=== PATIENT | female | born 1975 ===

== ENCOUNTER 2017-10-03 16:39 | Emergency (ER) | payer OTHER ==
[~2017-10-03] VITALS: Ht 152.4 cm; Wt 45.4 kg
--- NOTE | 2017-10-03 17:27 | ED GI/GU/ABDOMINAL COMPLAINT ---
History of Present Illness General Chief Complaint: Abdominal Pain/Flank Pain Stated Complaint: ABD PAIN Source: patient Exam Limitations: no limitations Vital Signs & Intake/Output Vital Signs & Intake/Output Vital Signs Date Time Temp Pulse Resp B/P B/P Pulse O2 O2 Flow FiO2 Mean Ox Delivery Rate 10/03 1850 84 18 133/64 100 Room Air 10/03 1848 Room Air 10/03 1647 96.6 66 16 138/69 99 Room Air Allergies Coded Allergies: ondansetron (From ZOFRAN ( HYDROCHLORIDE)) (Intermediate, ANXIETY 10/03/17) Triage Note: PT TO ER C/C N/V X 1 DAY, ABD PAIN 8/10, BURNING. + CHILLS. DENIES URINARY S/S. Triage Nurses Notes Reviewed? yes ? N Is pt currently ? No HPI: 42-year-old female former smoker, quit 7 years back with past medical history of anxiety, depression and use of marijuana came to ED with chief complaint of abdominal pain, nausea and vomiting since this morning. According to patient she was in her usual state of health since morning when she suddenly noticed having abdominal pain, continuous, 7/10, nonradiating, diffuse and no aggravating or relieving factor. Patient reported that she developed nausea and vomiting since this morning. She reported having vomiting multiple times since this morning, vomitus urination color without any blood and not smelling. She reported having 3-4 loose bowel movements. Patient reported that she ate steak, but didn't take last night. Patient reported that she is using marijuana for a long time for anxiety and nausea. Last time she used marijuana last night. She denied chest pain, palpitation, lightheadedness, headache, fever, chills, trauma, rash, tick bite, traveling, burning micturition, frequency of urination and dysuria. Patient was admitted with similar complaints last time in April 2017 when [facility] where she was given IV fluids and anti-emetics medications. Patient is thinking that her symptoms are due to anxiety. (Travis GRANT,Marvin) Reconcile Medications Levonorgestrel (Mirena) 20 MCG/24 HOUR (5 YEARS) IUD CONTROL (Reported) Metoclopramide HCl (Metoclopramide HCl Odt) 10 MG TAB.RAPDIS 1 TAB PO TID VOMITING (Emilie GRANT,Thomas Ward) Past History Travel History Traveled to [place] past 21 day No Medical History Gastrointestinal: GASTRIC ULCER Psychosocial History What is your primary language Kinyarwanda Tobacco Use: Never used (Marvin Robles MD) Medical History Any Pertinent Medical History? see below for history Surgical History Surgical History: non-contributory Family History Hx Contributory? No (Thomas Phan MD) Review of Systems Review of Systems Constitutional: Denies: chills, fever, weakness. EENTM: Reports: no symptoms. Respiratory: Denies: cough, short of breath, sputum production, stridor. Cardiovascular: Denies: chest pain, palpitations, syncope. GI: Reports: abdominal pain, diarrhea, nausea, vomiting. Denies: constipation. Genitourinary: Reports: no symptoms. Neurological/Psychological: Reports: no symptoms. (Marvin Robles MD) Review of Systems Hematologic/Endocrine: Reports: no symptoms. Immunologic/Allergic: Reports: no symptoms. (Thomas Phan MD) Physical Exam Physical Exam General Appearance: well developed/nourished, no apparent distress, alert, awake Head: atraumatic, normal appearance Eyes: Bilateral: normal appearance, PERRL, EOMI. Ears, Nose, Throat, Mouth: hearing grossly normal Neck: normal inspection, supple Respiratory: normal breath sounds Cardiovascular: regular rate/rhythm Gastrointestinal: Decreased bowel movements. Extremities: normal range of motion Neurologic/Psych: no motor/sensory deficits, awake, alert, oriented x 3 (Marvin Robles MD) Core Measures ACS in differential dx? No Sepsis Present: No Sepsis Focused Exam Completed? No (Thomas Phan MD) Progress Differential Diagnosis: gastritis, hepatitis, pancreatitis, gastroenteritis, cyclically induced vomiting syndrom, Marijuana induced vomiting. Plan of Care: Orders Procedure Date/time Status LIPASE 10/03 181 Active HUMAN BETA HCG SCREEN 10/04 1815 Active URINE DRUGS OF ABUSE 10/03 170 Active CBC WITHOUT DIFFERENTIAL 10/03 170 Active BASIC ELECTROLYTES PLUS BUN&CR 10/03 170 Active Current Medications Sig/Christin Start time Last Medication Dose Stop Time Status Admin Diphenhydramine HCl 25 MG ONCE ONE 10/03 1845 UNVr 10/03 (Benadryl) 10/03 1846 184 Ondansetron HCl 4 MG ONCE ONE 10/03 171 CAN (Zofran) 10/03 171 Laboratory Tests 10/03/17 1816: Sodium Pending, Potassium Pending, Chloride Pending, Carbon Dioxide Pending, Anion Gap Pending, BUN Pending, Creatinine Pending, BUN/Creatinine Ratio Pending , Lipase Pending, Total Beta HCG Pending, CBC w Diff MAN DIFF ORDERED, RBC 4.28, MCV 88.4, MCH 29.8, MCHC 33.8, RDW 13.5, MPV 8.1, Gran % 96.2 H, Lymphocytes % 1.8 L, Monocytes % 2.0, Eosinophils % 0, Basophils % 0, Absolute Granulocytes 18.5 H, Segmented Neutrophils Pending, Absolute Lymphocytes 0.4 L, Absolute Monocytes 0.4, Absolute Eosinophils 0, Absolute Basophils 0 10/03/17 172: Lipase Cancelled 10/03/17 171: Total Beta HCG Cancelled Initial ED EKG: none Comments: 42-year-old female former smoker, quit 7 years back with past medical history of anxiety, depression and use of marijuana came to ED with chief complaint of abdominal pain, nausea and vomiting since this morning. Considering patient's use of marijuana that can induce vomiting and abdominal paint. We will treat the patien with IV fluids and antiemetic medications. We will check CBC and BP with urine tox. We will discharge the patient on metoclopramide and Zofran by mouth. Was the patient see gastroenterology in 2-3 days. We will advise the patient to avoid marijuana use. (Travis GRANT,Marvin) Departure Departure Disposition: HOME OR SELF CARE Condition: Stable Clinical Impression Primary Impression: Cyclical vomiting syndrome Referrals: Gerardo Pereira MD (PCP/Family) Vinnie Hadley MD Additional Instructions: Please follow your primary care physician in one week Please follow up with gastroenterology in 2-3 days. If your symptoms worse than come back to ED. Pressure medications regularly and avoid marijuana use. Departure Forms: Customer Survey General Discharge Information Prescriptions: Current Visit Scripts Metoclopramide HCl (Metoclopramide HCl Odt) 1 TAB PO TID #20 TAB (Travis GRANT,Marvin) Resident Co-Sign Statement Statement: ED Attending supervision documentation- [X] I saw and evaluated the patient. I have also reviewed all the pertinent lab results and diagnostic results. I agree with the findings and the plan of care as documented in the Resident's documentation. [X] I have reviewed the ED Record and agree with the Resident's documentation. [] Additions or exceptions (if any) to the Resident's note and plan are summarized below: [] (Emilie GRANT,Thomas Ward)
[2017-10-03] MEDS ORDERED: MIRENA1 EACH (17:47)
[2017-10-03 18:25] LABS: ABSOLUTE BASOPHIL COUNT 0 /CUMM (0.0-0.2); ABSOLUTE EOSINOPHIL COUNT 0 /CUMM (0.0-0.7); ABSOLUTE GRANULOCYTE CT 18.5 /CUMM (1.4-6.5); ABSOLUTE LYMPH COUNT 0.4 /CUMM (1.2-3.4); ABSOLUTE MONOCYTE COUNT 0.4 /CUMM (0.10-0.60); BASOPHIL % 0 % (0.0-2.0); EOSINOPHIL % 0 % (0-5); HEMATOCRIT 37.9 % (37-47); MEAN CORPUSCULAR HGB 29.8 PG (27.0-31.0); MEAN CORPUSCULAR HGB CONC 33.8 G/DL (33.0-37.0); MEAN CORPUSCULAR VOLUME 88.4 FL (81.0-99.0); MEAN PLATELET VOLUME 8.1 FL (7.4-10.4); PLATELET COUNT 386 /CUMM (130-400); RBC DISTRIBUTION WIDTH 13.5 % (11.5-14.5); RED BLOOD CELL CT 4.28 /CUMM (4.20-5.40); WHITE BLOOD CELL COUNT 19.2 /CUMM (4.8-10.8)
[2017-10-03 18:27] LABS: GRANULOCYTE % 96.2 % (42.2-75.2)
[2017-10-03] MEDS ORDERED: METOCLOPRAMIDE10 M1 PO (18:49)
[2017-10-03 18:50] VITALS: BP 133/64
[2017-10-04] MEDS ORDERED: PHENERGAN25 M2 PR (01:57)
[2017-10-04] MEDS ORDERED: TRANSDERM-SCOP1 EAC1 TOP ×2 (01:57→03:59)
[2017-10-04] MEDS ORDERED: PROMETHAZINE HC25 M3 PO (01:57)
== END 2017-10-03 19:09 ==
LOC: ERH 16:39
PROVIDERS: Student in an Organized Health Care Education/Training Program
DX: G43.A0 Cyclical vomiting, in migraine, not intractable (principal)
CPT/HCPCS: 80307; 82436; 96374; 96375; J1200; J2405; J2765

== ENCOUNTER 2017-10-04 14:56 | Observation (INO) | payer OTHER ==
[~2017-10-04] VITALS: Ht 152.4 cm; Wt 45.4 kg
[~2017-10-04 14:56] MED LIST: METOCLOPRAMIDE10 M1 PO; MIRENA1 EACH; PHENERGAN25 M2 PR; PROMETHAZINE HC25 M3 PO; TRANSDERM-SCOP1 EAC1 TOP
--- NOTE | 2017-10-04 16:03 | ED GI/GU/ABDOMINAL COMPLAINT ---
See Addendum History of Present Illness General Chief Complaint: Nausea, Vomiting, Diarrhea Stated Complaint: VOMITING THIRD VISIT FOR SAME Source: patient Exam Limitations: no limitations Vital Signs & Intake/Output Vital Signs & Intake/Output Vital Signs Date Time Temp Pulse Resp B/P B/P Pulse O2 O2 Flow FiO2 Mean Ox Delivery Rate 10/04 1758 98.7 78 16 146/81 99 Room Air 10/04 1459 96.9 82 16 132/81 99 Room Air Allergies Coded Allergies: ondansetron (From ZOFRAN ( HYDROCHLORIDE)) (Intermediate, ANXIETY 10/03/17) metoclopramide (From REGLAN) ("ITCHY" PER PT 10/04/17) Reconcile Medications Levonorgestrel (Mirena) 20 MCG/24 HOUR (5 YEARS) IUD CONTROL (Reported) Metoclopramide HCl (Metoclopramide HCl Odt) 10 MG TAB.RAPDIS 1 TAB PO TID VOMITING Promethazine HCl (Phenergan) 25 MG SUPP.RECT 1 SUPP VT TID PRN NAUSEA Promethazine HCl 25 MG TABLET 1 TAB PO Q6P PRN NAUSEA Scopolamine (Transderm-Scop) 1 MG/3 DAY PATCH.TD.3 1 PATCH TOP Q3DAYS PRN NAUSEA Triage Note: 42 Y/O FEMALE IN ED TWICE AND TAKING PRESCRIBED MEDICATIONS - LAST DOSE NOON TODAY. STATES SHE CONTINUES TO HAVE DIFFUSE ABDOMINAL PAIN AND DRY HEAVES. DENIES URINARY SYMPTOMS. DENIES FEVERS. Triage Nurses Notes Reviewed? yes ? N Is pt currently ? No Onset: Abrupt Duration: constant Timing: recent history Location: generalized abdomen HPI: Patient is a 42-year-old female with a past medical history of cyclical vomiting syndrome, PUD in which old records indicate that patient was evaluated twice in the past 24 hours for her nausea vomiting abdominal pain in which patient states that Wednesday night she ate cheese steak and then Wednesday morning patient had acute onset of multiple labs showed of nausea and vomiting she was evaluated here at [place] emergency room work was obtained patient was sent home after improvement of her symptoms patient re-presented last night at 3 AM blood work was unobtainable patient was safely discharged however she reports with persistent nausea vomiting No change in bowel habits, denies any fever chills back pain dysuria hematuria Emesis is classified as nonbloody nonbilious (Helio Drake) Past History Travel History Traveled to [place] past 21 day No Medical History Any Pertinent Medical History? see below for history Neurological: NONE EENT: NONE Cardiovascular: NONE Respiratory: NONE Gastrointestinal: GASTRIC ULCER Hepatic: NONE Renal: NONE Musculoskeletal: NONE Psychiatric: NONE Endocrine: NONE Blood Disorders: NONE Cancer(s): NONE LAB ANALYST/Reproductive: NONE Surgical History Surgical History: non-contributory Psychosocial History What is your primary language [place]de[place] Creole Tobacco Use: Never used Family History Hx Contributory? No (Helio Drake) Review of Systems Review of Systems Constitutional: Reports: no symptoms. EENTM: Reports: no symptoms. Respiratory: Reports: no symptoms. Cardiovascular: Reports: no symptoms. GI: Reports: see HPI, abdominal pain, vomiting. Genitourinary: Reports: no symptoms. Musculoskeletal: Reports: no symptoms. Skin: Reports: no symptoms. Neurological/Psychological: Reports: no symptoms. Hematologic/Endocrine: Reports: no symptoms. Immunologic/Allergic: Reports: no symptoms. All Other Systems: Reviewed and Negative (Helio Drake) Physical Exam Physical Exam General Appearance: no apparent distress, alert, comfortable Head: atraumatic Eyes: Bilateral: normal appearance. Neck: normal inspection Respiratory: no respiratory distress Cardiovascular: regular rate/rhythm Gastrointestinal: normal bowel sounds, soft, tenderness Back: normal inspection Neurologic/Psych: no motor/sensory deficits, awake, alert Skin: intact, normal color, warm/dry Core Measures ACS in differential dx? No Sepsis Present: No Sepsis Focused Exam Completed? No (Helio Drake) Progress Differential Diagnosis: AAA, AMI, appendicitis, biliary colic, bowel obstruction , colon cancer, cholecystitis, diverticulitis, ectopic , endometritis, esophageal varices, gastritis, hepatitis, hernia, hemorrhoids, ischemic bowel, inflamm bowel dis, intrauterine , kidney stone, Monica-Asmita tear, ovarian cyst, ovarian torsion, pancreatitis, PID/cervicitis, peptic ulcer, PUD/ GERD, perforated viscous, SBO, threatened AB, UTI/pyelo Plan of Care: Orders Procedure Date/time Status LACTIC ACID 10/04 1908 Active URINE DRUG SCREEN FOR ER ONLY 10/04 1735 Active URINALYSIS 10/[address] ABD & PELVIS W IV CONTRAST 10/04 1611 Active LACTIC ACID 10/04 1608 Complete COMPREHENSIVE METABOLIC PANEL 10/04 1608 Complete CBC WITHOUT DIFFERENTIAL 10/04 1608 Active Laboratory Tests 10/04/17 1650: Anion Gap 15, Estimated GFR > 60, BUN/Creatinine Ratio 28.0 H, Glucose 104 H, Lactic Acid 1.3, Calcium 9.6, Total Bilirubin 0.6, AST 32, ALT 35, Alkaline Phosphatase 45, Total Protein 7.6, Albumin 4.8, Globulin 2.8, Albumin/Globulin Ratio 1.7, CBC w Diff MAN DIFF ORDERED, RBC 4.28, MCV 89.0, MCH 29.6, MCHC 33.3, RDW 13.6, MPV 8.5, Gran % 91.0 H, Lymphocytes % 3.0 L, Monocytes % 6.0, Eosinophils % 0, Basophils % 0, Absolute Granulocytes 17.5 H, Segmented Neutrophils Pending, Absolute Lymphocytes 0.6 L, Absolute Monocytes 1.2 H, Absolute Eosinophils 0, Absolute Basophils 0 Patient upon initial presentation is resting, bedside no apparent distress Afebrile normotensive Patient had no resolution of pain or nausea patient was given Toradol and Tigan Discussed handoff to Antonio Early blood work and CT scan currently pending Initial ED EKG: none Hand-Off Endorsed To: Antonio Huffman Endorsed Time: 1800 Pending: CT, labs (Helio Drake) Departure Departure Disposition: STILL A PATIENT Condition: Stable Clinical Impression Primary Impression: Abdominal pain Referrals: Gerardo Pereira MD (PCP/Family) Departure Forms: Customer Survey General Discharge Information (Helio Drake) PA/VEHICLE RETURN ASSOCIATE Co-Sign Statement Statement: ED Attending supervision documentation- [] I saw and evaluated the patient. I have also reviewed all the pertinent lab results and diagnostic results. I agree with the findings and the plan of care as documented in the PA's/VEHICLE RETURN ASSOCIATE's documentation. [X] I have reviewed the ED Record and agree with the PA's/VEHICLE RETURN ASSOCIATE's documentation. [] Additions or exceptions (if any) to the PAs/VEHICLE RETURN ASSOCIATE's note and plan are summarized below: [] (Moreno Isidro DO)
[2017-10-04 17:06] LABS: ABSOLUTE BASOPHIL COUNT 0 /CUMM (0.0-0.2); ABSOLUTE EOSINOPHIL COUNT 0 /CUMM (0.0-0.7); ABSOLUTE GRANULOCYTE CT 17.5 /CUMM (1.4-6.5); ABSOLUTE LYMPH COUNT 0.6 /CUMM (1.2-3.4); ABSOLUTE MONOCYTE COUNT 1.2 /CUMM (0.10-0.60); BASOPHIL % 0 % (0.0-2.0); EOSINOPHIL % 0 % (0-5); HEMATOCRIT 38.1 % (37-47); MEAN CORPUSCULAR HGB 29.6 PG (27.0-31.0); MEAN CORPUSCULAR HGB CONC 33.3 G/DL (33.0-37.0); MEAN PLATELET VOLUME 8.5 FL (7.4-10.4); PLATELET COUNT 353 /CUMM (130-400); RBC DISTRIBUTION WIDTH 13.6 % (11.5-14.5); RED BLOOD CELL CT 4.28 /CUMM (4.20-5.40); WHITE BLOOD CELL COUNT 19.2 /CUMM (4.8-10.8)
--- NOTE | 2017-10-04 21:30 | CT SCAN REPORT ---
EXAMINATION: CT ABDOMEN AND PELVIS WITHOUT CONTRAST CLINICAL INFORMATION: Generalized abdominal pain. COMPARISON: None TECHNIQUE: Multidetector volumetric imaging was performed from the superior aspect of the liver through the pubic symphysis. Sagittal and coronal reformatted images were obtained on the technologist's workstation. DLP: 258.78 mGy-cm FINDINGS: LUNG BASES: The visualized lung bases are unremarkable. LIVER, GALLBLADDER, AND BILIARY TREE: Periportal edema is seen with trace pericholecystic fluid. The liver is normal in size and contour. No focal liver lesions identified. The gallbladder is not overly distended. PANCREAS: Unremarkable. SPLEEN: Unremarkable. ADRENAL GLANDS: Unremarkable. KIDNEYS AND URETERS: Slightly hyperdense material within the urinary collecting systems. No evidence of hydronephrosis or perinephric stranding bilaterally. No radiopaque urinary calculi. BLADDER: The bladder is filled with hyperdense material without focal wall abnormality. GASTROINTESTINAL TRACT: The GI tract is very poorly evaluated due to lack of intra-abdominal fat planes, lack of luminal contrast and lack of IV contrast. The appendix is not seen. ABDOMINAL WALL: No significant abdominal wall hernia. There is trace abdominal ascites which tracks along the paracolic gutters with trace pelvic ascites as well. LYMPH NODES: Very difficult to evaluate for lymphadenopathy due to the above-mentioned limitations. No definite bulky lymphadenopathy is identified. VASCULAR: No abdominal aortic aneurysm. PELVIC VISCERA: IUD appears well placed. OSSEOUS STRUCTURES: No acute or suspicious osseous abnormality. IMPRESSION: 1. Limited evaluation without oral or IV contrast. Lack of intra-abdominal fat planes also limits evaluation. 2. There is periportal edema present within the liver along with trace abdominal ascites and trace pericholecystic fluid. These findings are nonspecific. Clinical correlation requested. 3. The gallbladder does not appear distended or inflamed. Right upper quadrant ultrasound may be of use for further evaluation. 4. Hyperdense material within the bladder and minimally within the upper urinary collecting systems suggestive of prior IV contrast study.
--- NOTE | 2017-10-05 08:34 | ULTRASOUND REPORT ---
EXAMINATION: US ABDOMEN LIMITED CLINICAL INFORMATION: Right upper quadrant and epigastric pain. Nausea and vomiting. Patient states epigastric pain for 3 days. COMPARISON: CT scan of the abdomen and pelvis dated 10/04/2017. TECHNIQUE: Real-time imaging of the right upper quadrant abdominal viscera. FINDINGS: PANCREAS: Normal. LIVER: Normal. The liver demonstrates normal size, contour and echogenicity. No focal lesion or intrahepatic biliary duct dilatation. GALLBLADDER: The gallbladder is physiologically distended without evidence of stones, sludge, polyps, or wall thickening. There is, however, pericholecystic fluid seen and a positive sonographic Waggoner's sign is elicited while scanning over the gallbladder. Findings are suspicious for acute cholecystitis. COMMON BILE DUCT: Normal in caliber measuring 0.5 cm in diameter. RIGHT KIDNEY: Normal. No hydronephrosis. No renal calculi or focal parenchymal lesions. The kidney measures 11.2 cm in maximum dimension. FREE FLUID: None. IMPRESSION: 1. Above findings are suspicious for acute cholecystitis. Close clinical correlation is requested. 2. No evidence of biliary obstruction, choledocholithiasis or cholelithiasis. 3. Otherwise unremarkable right upper quadrant ultrasound.
[2017-10-05 14:24] LABS: ABSOLUTE BASOPHIL COUNT 0 /CUMM (0.0-0.2); ABSOLUTE EOSINOPHIL COUNT 0 /CUMM (0.0-0.7); ABSOLUTE GRANULOCYTE CT 13.3 /CUMM (1.4-6.5); ABSOLUTE LYMPH COUNT 0.8 /CUMM (1.2-3.4); ABSOLUTE MONOCYTE COUNT 1.3 /CUMM (0.10-0.60); BASOPHIL % 0 % (0.0-2.0); EOSINOPHIL % 0 % (0-5); HEMATOCRIT 35.1 % (37-47); MEAN CORPUSCULAR HGB 29.4 PG (27.0-31.0); MEAN CORPUSCULAR HGB CONC 33.2 G/DL (33.0-37.0); MEAN CORPUSCULAR VOLUME 88.7 FL (81.0-99.0); MEAN PLATELET VOLUME 7.7 FL (7.4-10.4); PLATELET COUNT 310 /CUMM (130-400); RBC DISTRIBUTION WIDTH 13.7 % (11.5-14.5); RED BLOOD CELL CT 3.96 /CUMM (4.20-5.40); WHITE BLOOD CELL COUNT 15.3 /CUMM (4.8-10.8)
[2017-10-05 14:41] LABS: GRANULOCYTE % 86.5 % (42.2-75.2)
--- NOTE | 2017-10-05 15:07 | Cons- General Surgery ---
General Information and HPI Consulting Request Date of Consult: 10/05/17 Requested By: Frederick Ley MD History of Present Illness: CC: Abdominal pain HPI: 42-year-old smoker nondiabetic with a long history of episodes of abdominal pain and vomiting she recalls back to when she was 9 years old, the worst episode was 17 years ago when she was hospitalized at that time told she had an ulcer she was also vomiting blood but not now. This episode started 3 days ago this is her third trip to the ER her abdominal pain is not focal its diffuse a burning type the mostly its thin nausea and vomiting she takes medications for it, including marijuana, most recent prior episode was in April at another hospital "they can't seem to figure out what it is" she said she woke up Wednesday morning vomiting but felt relatively well on Wednesday. She denies any unusual meals or straining or recent flulike symptoms no fevers pain is not worse on movement it doesn't radiate it's not constant either, Wednesday night she had cheese stick and doesn't like cheese but in general this vomiting she feels has no relation to foods (ie. fried or cheese), no particular darkening of urine (ie iced tea) or lightening / loose stools (mccrary), no FHx of gallbladder problems. Otherwise no changes bowel habits, weight or appetite. [facility] No history of heart disease or issues with anesthesia. Past surgical history no prior abdominal surgery, family history mother diabetes no gallbladder disease Allergies/Medications Allergies: Coded Allergies: ondansetron (From ZOFRAN ( HYDROCHLORIDE)) (Intermediate, ANXIETY 10/03/17) metoclopramide (From REGLAN) ("ITCHY" PER PT 10/04/17) Home Med List: Levonorgestrel (Mirena) 20 MCG/24 HOUR (5 YEARS) IUD CONTROL (Reported) Metoclopramide HCl (Metoclopramide HCl Odt) 10 MG TAB.RAPDIS 1 TAB PO TID VOMITING Promethazine HCl (Phenergan) 25 MG SUPP.RECT 1 SUPP [place] TID PRN NAUSEA Promethazine HCl 25 MG TABLET 1 TAB PO Q6P PRN NAUSEA Scopolamine (Transderm-Scop) 1 MG/3 DAY PATCH.TD.3 1 PATCH TOP Q3DAYS PRN NAUSEA Current Medications: I rev Current Medications Sig/Christin Start time Last Medication Dose Route Stop Time Status Admin Acetaminophen 0 .STK-MED ONE 10/04 1702 DC IV Acetaminophen 1,000 MG ONCE ONE 10/04 1615 DC 10/04 N/A 1 UNIT IV 10/04 1629 1712 Ceftriaxone Sodium 0 .STK-MED ONE 10/05 0904 DC .ROUTE Ceftriaxone Sodium 1,000 MG ONCE ONE 10/05 0900 DC 10/05 IV 10/05 0901 0910 Famotidine 0 .STK-MED ONE 10/04 2301 DC IV Famotidine 20 MG ONCE ONE 10/04 2130 DC 10/04 IV 10/04 2131 2302 Ketorolac 30 MG ONCE ONE 10/04 1830 DC 10/04 Tromethamine IM 10/04 1831 1824 Ketorolac 0 .STK-MED ONE 10/04 1758 DC Tromethamine .ROUTE Ketorolac 30 MG ONCE ONE 10/04 1745 CAN Tromethamine IV 10/04 1746 Lactated Ringer's 1,000 ML ONCE ONE 10/05 0900 DC 10/05 IV 10/05 0901 0945 Lorazepam 0 .STK-MED ONE 10/05 0418 DC .ROUTE Lorazepam 2 MG ONE ONE 10/05 0415 DC 10/05 IV 10/05 0416 0419 Lorazepam 1 MG ONCE ONE 10/05 0400 CAN IV 10/05 0401 Lorazepam 0 .STK-MED ONE 10/05 0351 DC .ROUTE Lorazepam 1 MG ONCE ONE 10/04 2330 DC 10/04 IV 10/04 2331 2332 Lorazepam 0 .STK-MED ONE 10/04 2326 DC .ROUTE Lorazepam 0 .STK-MED ONE 10/04 1931 DC .ROUTE Lorazepam 1 MG ONCE ONE 10/04 1930 DC 10/04 IV 10/04 193 194 Meclizine HCl 0 .STK-MED ONE 10/045 DC PO Meclizine HCl 25 MG ONCE ONE 10/04 2014 DC 10/04 PO 10/04 Metronidazole 500 MG ONCE ONE 10/05 0900 DC 10/05 N/A 1 UNIT IV 10/05 0959 0914 Promethazine HCl 25 MG ONCE ONE 10/05 1015 DC 10/05 IV 10/05 1016 1011 Promethazine HCl 0 .STK-MED ONE 10/05 1009 DC .ROUTE Promethazine HCl 25 MG ONCE ONE 10/05 0415 DC 10/05 IV 10/05 0416 0416 Promethazine HCl 0 .STK-MED ONE 10/05 0412 DC .ROUTE Promethazine HCl 25 MG ONCE ONE 10/05 0400 CAN IV 10/05 0401 Promethazine HCl 0 .STK-MED ONE 10/05 0351 DC .ROUTE Promethazine HCl 25 MG ONCE ONE 10/04 2330 DC 10/04 IV 10/04 2331 2332 Promethazine HCl 0 .STK-MED ONE 10/04 2325 DC .ROUTE Promethazine HCl 0 .STK-MED ONE 10/04 1702 DC .ROUTE Promethazine HCl 25 MG ONCE ONE 10/04 1615 DC 10/04 IV 10/04 1616 1712 Sodium Chloride 1,000 ML BOLUS ONE 10/04 2115 DC 10/04 IV 10/04 2214 2254 Sodium Chloride 1,000 ML BOLUS ONE 10/04 1830 DC 10/04 IV 10/04 1929 2059 Sodium Chloride 1,000 ML BOLUS ONE 10/04 1615 DC 10/04 IV 10/04 1714 1712 Trimethobenzamide HCl 0 .STK-MED ONE 10/04 1759 DC IM Trimethobenzamide HCl 200 MG ONCE ONE 10/04 1745 DC 10/04 IM 10/04 1746 1824 Past History Medical History Neurological: NONE EENT: NONE Cardiovascular: NONE Respiratory: NONE Gastrointestinal: GASTRIC ULCER Hepatic: NONE Renal: NONE Musculoskeletal: NONE Psychiatric: NONE Endocrine: NONE Blood Disorders: NONE Cancer(s): NONE [employer]/Reproductive: NONE Surgical History Pertinent Surgical History: non-contributory Psychosocial History Smoking Status: Unknown If Ever Smoked Review of Systems Review of Systems: Constitutional: No fever, sweats or weight loss ENMT: No sore throat Cardiovascular: No chest pain, palpitations or leg swelling Respiratory: No shortness of breath, cough, or sputum or dyspnea on exertion GI: No bleeding per rectum : No dysuria or hematuria Musculoskeletal: No new muscle weakness, bone or joint pain Skin / Breast: No jaundice, rashes or itching Psychiatric: No history of drug or alcohol abuse no depression or anxiety Hematologic / lymphatic system: No problems with excessive bleeding, bruising, or blood clots Exam & Diagnostic Data Vital Signs and I&O I rev Vital Signs Date Time Temp Pulse Resp B/P B/P Pulse O2 O2 Flow FiO2 Mean Ox Delivery Rate 10/05 1229 98.5 72 18 131/77 98 Room Air 10/05 0820 98.6 81 20 130/78 98 Room Air 10/05 0420 98.2 84 18 132/82 97 Room Air 10/05 0014 99.0 82 16 135/87 98 Room Air 10/05 2011 98.9 80 16 135/81 98 Room Air 10/04 1758 98.7 78 16 146/81 99 Room Air I rev Intake & Output 10/05 1600 10/05 0800 10/05 0000 10/04 1600 10/04 0810/04 0000 Intake Total 100 Output Total Balance 100 Intake, IV 100 Patient 99 lb 15.99 oz Weight Weight Reported by Patient Measurement Method Physical Exam: Constitutional: pleasant, no acute distress, conversant Eyes: sclera anicteric ENMT: ears and nose atraumatic, moist mucous membranes, good dentition, no lip lesions Neck: Supple, trachea is midline, no cervical or supraclavicular adenopathy and no palpable thyromegaly Cardiovascular: S1, S2, no murmurs, no peripheral edema Respiratory: clear to auscultation with normal respiratory effort and no intercostal retractions GI: abdomen soft, no focal tenderness generally uncomfortable to deep palpation no rebound or guarding nondistended, no palpable hepatosplenomegaly Extremities / lymphatics: symmetrically warm, free range of motion no peripheral edema, no cervical, supraclavicular, axillary, or inguinal adenopathy Musculoskeletal: Did not evaluate gait and station, no digital cyanosis, good muscle strength and tone no atrophy, motor grossly 5 out of 5 throughout Skin: no jaundice, no rashes warm, nondiaphoretic, no areas of erythema or induration Psychiatric: mood and affect are appropriate and alert and oriented to person place and time Last 24 Hours of Labs: I rev Laboratory Tests 10/05 10/04 1417 2147 Chemistry Sodium (137 - 145 mmol/L) 141 Potassium (3.5 - 5.1 mmol/L) 3.1 L Chloride (98 - 107 mmol/L) 102 Carbon Dioxide (22 - 30 mmol/L) 27 Anion Gap (5 - 16) 12 BUN (7 - 17 mg/dL) 8 Creatinine (0.5 - 1.0 mg/dL) 0.5 Estimated GFR (>60 ml/min) > 60 BUN/Creatinine Ratio (7 - 25 %) 16.0 Glucose (65 - 99 mg/dL) 90 Calcium (8.4 - 10.2 mg/dL) 8.8 Total Bilirubin (0.2 - 1.3 mg/dL) 0.7 AST (14 - 36 U/L) 43 H ALT (9 - 52 U/L) 59 H Alkaline Phosphatase (<127 U/L) 38 Total Protein (6.3 - 8.2 g/dL) 6.4 Albumin (3.5 - 5.0 g/dL) 4.0 Globulin (1.9 - 4.2 gm/dL) 2.4 Albumin/Globulin Ratio (1.1 - 2.2 %) 1.7 Lipase (23 - 300 U/L) 79 Hematology CBC w Diff NO MAN DIFF REQ WBC (4.8 - 10.8 /CUMM) 15.3 H RBC (4.20 - 5.40 /CUMM) 3.96 L Hgb (12.0 - 16.0 G/DL) 11.7 L Hct (37 - 47 %) 35.1 L MCV (81.0 - 99.0 FL) 88.7 MCH (27.0 - 31.0 PG) 29.4 MCHC (33.0 - 37.0 G/DL) 33.2 RDW (11.5 - 14.5 %) 13.7 Plt Count (130 - 400 /CUMM) 310 MPV (7.4 - 10.4 FL) 7.7 Gran % (42.2 - 75.2 %) 86.5 H Lymphocytes % (20.5 - 51.1 %) 5.1 L Monocytes % (1.7 - 9.3 %) 8.4 Eosinophils % (0 - 5 %) 0 Basophils % (0.0 - 2.0 %) 0 Absolute Granulocytes (1.4 - 6.5 /CUMM) 13.3 H Absolute Lymphocytes (1.2 - 3.4 /CUMM) 0.8 L Absolute Monocytes (0.10 - 0.60 /CUMM) 1.3 H Absolute Eosinophils (0.0 - 0.7 /CUMM) 0 Absolute Basophils (0.0 - 0.2 /CUMM) 0 Serology Hepatitis A IgM Ab Pending Hep Bs Antigen Pending Hep B Core IgM Ab Conf Pending Hepatitis C Antibody Pending Toxicology Urine Opiates Screen (>2000 NG/ML) < 100 Methadone Screen (>300 NG/ML) 77 Barbiturate Screen (>200 NG/ML) < 60 Ur Phencyclidine Scrn (>25 NG/ML) < 6.00 Amphetamines Screen (>1000 NG/ML) < 100 U Benzodiazepines Scrn (>200 NG/ML) < 85 Urine Cocaine Screen (>300 NG/ML) < 50 Urine Cannabis Screen (>50 NG/ML) > 80.00 H Urines Urinalysis MOD H Urine Color (YEL,AMB,STR) YEL Urine Clarity (CLEAR) CLEAR Urine pH (5.0 - 8.0) 7.0 Ur Specific [place] (1.001 - 1.035) 1.025 Urine Protein (NEG,<30 MG/DL) TRACE H Urine Ketones (NEG) 40 H Urine Nitrite (NEG) NEG Urine Bilirubin (NEG) NEG Urine Urobilinogen (0.1 - 1.0 EU/dl) 0.2 Ur Leukocyte Esterase (NEG) NEG Ur Microscopic SEDIMENT EXAMINED Urine WBC (0 - 2 /HPF) 1-3 H Ur Epithelial Cells (NONE,FEW) FEW Urine Bacteria (NEG/NONE) FEW H Urine Mucus (FEW,NONE) FEW Urine Hemoglobin (NEG) NEG Urine Glucose (N MG/DL) NEG 10/04 10/04 1908 1650 Chemistry Sodium (137 - 145 mmol/L) 144 Potassium (3.5 - 5.1 mmol/L) 3.7 Chloride (98 - 107 mmol/L) 105 Carbon Dioxide (22 - 30 mmol/L) 23 Anion Gap (5 - 16) 15 BUN (7 - 17 mg/dL) 14 Creatinine (0.5 - 1.0 mg/dL) 0.5 Estimated GFR (>60 ml/min) > 60 BUN/Creatinine Ratio (7 - 25 %) 28.0 H Glucose (65 - 99 mg/dL) 104 H Lactic Acid (0.7 - 2.1 mmol/L) Cancelled 1.3 Calcium (8.4 - 10.2 mg/dL) 9.6 Total Bilirubin (0.2 - 1.3 mg/dL) 0.6 AST (14 - 36 U/L) 32 ALT (9 - 52 U/L) 35 Alkaline Phosphatase (<127 U/L) 45 Total Protein (6.3 - 8.2 g/dL) 7.6 Albumin (3.5 - 5.0 g/dL) 4.8 Globulin (1.9 - 4.2 gm/dL) 2.8 Albumin/Globulin Ratio (1.1 - 2.2 %) 1.7 Lipase (23 - 300 U/L) 125 Beta HCG, Quant (mIU/mL) < 2.4 Hematology CBC w Diff MAN DIFF ORDERED WBC (4.8 - 10.8 /CUMM) 19.2 H RBC (4.20 - 5.40 /CUMM) 4.28 Hgb (12.0 - 16.0 G/DL) 12.7 Hct (37 - 47 %) 38.1 MCV (81.0 - 99.0 FL) 89.0 MCH (27.0 - 31.0 PG) 29.6 MCHC (33.0 - 37.0 G/DL) 33.3 RDW (11.5 - 14.5 %) 13.6 Plt Count (130 - 400 /CUMM) 353 MPV (7.4 - 10.4 FL) 8.5 Gran % (42.2 - 75.2 %) 91.0 H Lymphocytes % (20.5 - 51.1 %) 3.0 L Monocytes % (1.7 - 9.3 %) 6.0 Eosinophils % (0 - 5 %) 0 Basophils % (0.0 - 2.0 %) 0 Absolute Granulocytes (1.4 - 6.5 /CUMM) 17.5 H Segmented Neutrophils (42.2 - 75.2 %) 94 H Absolute Lymphocytes (1.2 - 3.4 /CUMM) 0.6 L Lymphocytes (20.5 - 51.1 %) 2 L Monocytes (1.7 - 9.3 %) 4 Absolute Monocytes (0.10 - 0.60 /CUMM) 1.2 H Absolute Eosinophils (0.0 - 0.7 /CUMM) 0 Absolute Basophils (0.0 - 0.2 /CUMM) 0 Platelet Estimate (ADEQUATE) VERIFIED BY SMEAR Normocytic RBCs VERIFIED Normochromic RBCs VERIFIED Other Body Source Fld Total RBCs Counted (%) 100 Assessment/Plan Assessment/Plan I reviewed CT abd from yest and todays US on PACs myself, as well as a follow-up HIDA scan On CT there is ernie portal edema, gallbladder not distended and the wall was not particularly thick on ultrasound no gallstones there is some pericholecystic fluid. HIDA scan shows filling of gallbladder within 20 minutes. Impression is chronic history of recurrent vomiting history of gastric ulcer, now with acute episode of 3 days of vomiting, portal edema no gallstones on imaging, leukocytosis though slightly improved, from 19-15, overall not picture typical of biliary colic or acute cholecystitis especially with the HIDA scan, and lack of stones, recommend following labs for trends, no the slight bump in transaminases may be related to the portal edema vice versa, check hepatitis panel consult gastroenterology but no obvious surgical indications at this time. Problem List: 1. Nausea and vomiting 2. Abdominal pain Consult Acknowledgment - Thank you for your consult request.
--- NOTE | 2017-10-05 16:14 | History & Physical ---
Kain Arroyo 10/05/17 1613: General Information and HPI MD Statement: I have seen and personally examined CHILO VANEGAS and documented this H&P. The patient is a 42 year old F who presented with a patient stated chief complaint of [intractable vomiting]. Source of Information: patient, family Exam Limitations: no limitations History of Present Illness: Patient is a 42 year old woman with PMH significant for peptic ulcer disease and cyclic vomiting syndrome who came to the ER with complaint of intractable vomiting and abdominal pain for 2 days. Patient states that her pain started on Wednesday (10/03) morning, at which time she was vomiting ~10 times per hour. At that time she came to [facility] and was given IV fluids and discharged with metoclopromide and odansetron PO, and advised to f/u with gastroenterology. Later, after returning home, patient remained unable to take food or drink by mouth and returned to ER. She did not vomit in the ER, and was discharged home with oral medications again. Patient returned to the ER later that day with the same complaint. At this time she was kept in observation overnight for her symptoms. An ultrasound of her abdomen revealed findings suggestive of cholecystitis. Surgical consult stated that her case appeared to not be surgical , so the was sent on observation to general medicine. Patient states she has been ahving 5/10 constant abdominal pain, burning in nature, worsened by vomiting and eating. Patient denies blood in vomitus. Patient has been receiving medical marijuana since April 2017 for her cyclic vomiting syndrome. Allergies/Medications Allergies: Coded Allergies: ondansetron (From ZOFRAN ( HYDROCHLORIDE)) (Intermediate, ANXIETY 10/03/17) metoclopramide (From REGLAN) ("ITCHY" PER PT 10/04/17) Home Med list Levonorgestrel (Mirena) 20 MCG/24 HOUR (5 YEARS) IUD CONTROL (Reported) Metoclopramide HCl (Metoclopramide HCl Odt) 10 MG TAB.RAPDIS 1 TAB PO TID VOMITING Promethazine HCl (Phenergan) 25 MG SUPP.RECT 1 SUPP NH TID PRN NAUSEA Promethazine HCl 25 MG TABLET 1 TAB PO Q6P PRN NAUSEA Scopolamine (Transderm-Scop) 1 MG/3 DAY PATCH.TD.3 1 PATCH TOP Q3DAYS PRN NAUSEA Compliance With Home Meds: UNKNOWN Past History Travel History Traveled to [place] past 21 day No Medical History Neurological: NONE EENT: NONE Cardiovascular: NONE Respiratory: NONE Gastrointestinal: GASTRIC ULCER, cyclic vomiting syndrome Hepatic: NONE Renal: NONE Musculoskeletal: NONE Psychiatric: NONE Endocrine: NONE Blood Disorders: NONE Cancer(s): NONE SUPERVISOR 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 Ambulation: independent IADLs Independent: shopping, housework, finances, food prep, telephone, transportation , medication admin. Employment History Employment Unemployed Review of Systems Review of Systems Constitutional: Reports: no symptoms. EENTM: Reports: no symptoms. Cardiovascular: Reports: no symptoms. Respiratory: Reports: no symptoms. GI: Reports: abdominal pain, nausea, vomiting. Denies: constipation. Genitourinary: Reports: no symptoms. Musculoskeletal: Reports: no symptoms. Skin: Reports: no symptoms. Neurological/Psychological: Reports: no symptoms. Hematologic/Endocrine: Reports: no symptoms. Immunologic/Allergic: Reports: no symptoms. Exam & Diagnostic Data Last 24 Hrs of Vital Signs/I&O Vital Signs Date Time Temp Pulse Resp B/P B/P Pulse O2 O2 Flow FiO2 Mean Ox Delivery Rate 10/05 1808 98.9 71 18 124/64 100 Room Air 10/05 1603 74 18 142/80 99 Room Air 10/05 1229 98.5 72 18 131/77 98 Room Air 10/05 0820 98.6 81 20 130/78 98 Room Air 10/05 0420 98.2 84 18 132/82 97 Room Air 10/05 0014 99.0 82 16 135/87 98 Room Air 10/04 2012 98.9 80 16 135/81 98 Room Air Intake & Output 10/05 1600 10/05 0800 10/05 0000 Intake Total 100 Output Total Balance 100 Intake, IV 100 Physical Exam General Appearance Alert, Oriented X3, Cooperative, Moderate Distress Skin No Rashes, No Breakdown Skin Temp/Moisture Exam: Warm/Dry HEENT Atraumatic, PERRLA, EOMI Neck No JVD, No thryomegaly, +2 Carotid Pulse wo Bruit Lymphatic Axillary nl, Cervical nl Cardiovascular Regular Rate, Normal S1, Normal S2, No Murmurs Lungs Clear to Auscultation, Normal Air Movement Abdomen Soft, No Hepatospenomegaly, globally very tender to palpation Neurological Normal Speech, Strength at 5/5 X4 Ext, Normal Tone, Sensation Intact, Cranial Nerves 3-12 NL Extremities No Clubbing, No Cyanosis, No Edema, Normal Pulses Vascular Normal Pulses, Pulses Symmetrical Last 24 Hrs of Labs/Edgar: Laboratory Tests 10/05/17 1417: Anion Gap 12, Estimated GFR > 60, BUN/Creatinine Ratio 16.0, Glucose 90, Calcium 8.8, Total Bilirubin 0.7, AST 43 H, ALT 59 H, Alkaline Phosphatase 38, Total Protein 6.4, Albumin 4.0, Globulin 2.4, Albumin/Globulin Ratio 1.7, Lipase 79, CBC w Diff NO MAN DIFF REQ, RBC 3.96 L, MCV 88.7, MCH 29.4, MCHC 33.2, RDW 13.7 , MPV 7.7, Gran % 86.5 H, Lymphocytes % 5.1 L, Monocytes % 8.4, Eosinophils % 0, Basophils % 0, Absolute Granulocytes 13.3 H, Absolute Lymphocytes 0.8 L, Absolute Monocytes 1.3 H, Absolute Eosinophils 0, Absolute Basophils 0, Hepatitis A IgM Ab NONREACTIVE, Hep Bs Antigen NONREACTIVE, Hep B Core IgM Ab Conf NONREACTIVE, Hepatitis C Antibody NONREACTIVE 10/04/177: Urine Opiates Screen < 100, Methadone Screen 77, Barbiturate Screen < 60, Ur Phencyclidine Scrn < 6.00, Amphetamines Screen < 100, U Benzodiazepines Scrn < 85, Urine Cocaine Screen < 50, Urine Cannabis Screen > 80.00 H, Urinalysis MOD H, Urine Color YEL, Urine Clarity CLEAR, Urine pH 7.0, Ur Specific Mart 1.025 , Urine Protein TRACE H, Urine Ketones 40 H, Urine Nitrite NEG, Urine Bilirubin NEG, Urine Urobilinogen 0.2, Ur Leukocyte Esterase NEG, Ur Microscopic SEDIMENT EXAMINED, Urine WBC 1-3 H, Ur Epithelial Cells FEW, Urine Bacteria FEW H, Urine Mucus FEW, Urine Hemoglobin NEG, Urine Glucose NEG 10/04/17 1908: Lactic Acid Cancelled Diagnostic Data Other Results SERVICE DATE: 10/04/17-161 EXAM TYPE: CAT - CT ABD & PELVIS W/O IV CONTRAS IMPRESSION: 1. Limited evaluation without oral or IV contrast. Lack of intra-abdominal fat planes also limits evaluation. 2. There is periportal edema present within the liver along with trace abdominal ascites and trace pericholecystic fluid. These findings are nonspecific. Clinical correlation requested. 3. The gallbladder does not appear distended or inflamed. Right upper quadrant ultrasound may be of use for further evaluation. 4. Hyperdense material within the bladder and minimally within the upper urinary collecting systems suggestive of prior IV contrast study. SERVICE DATE: 10/05/17 EXAM TYPE: US - US-LIMITED ABDOMEN IMPRESSION: 1. Above findings are suspicious for acute cholecystitis. Close clinical correlation is requested. 2. No evidence of biliary obstruction, choledocholithiasis or cholelithiasis. 3. Otherwise unremarkable right upper quadrant ultrasound. SERVICE DATE: 10/05/17 EXAM TYPE: NUC - HIDA SCAN IMPRESSION: Normal biliary scan. Visualization of the gallbladder is evidence of a patent cystic duct and strong evidence against the diagnosis of acute cholecystitis. The common bile duct is patent. Liver function appears normal. Assessment/Plan Assessment: 42 year old female with PMH of PUD and cyclic vomiting syndrome on observation for intractable vomiting. Problem list/plan: Intractable vomiting and abdominal pain -Observe on general medicine floor -HIDA is negative for acute cholecystitis -Pain management with Tigan and Phenergan avoiding metoclopramide and Zofran -Clear liquid diet, NPO after midnight for any possible endoscopy -IV protonix for known PUD. -Replete potassium (likely from vomiting) -GI consult for AM placed DVT prophylaxis: Subcu heparing Clear liquid diet Patient is full code As Ranked By This Provider Problem List: 1. Cyclical vomiting syndrome 2. Abdominal pain 3. Nausea and vomiting Core Measures/Misc (11/29) Acute Coronary Syndrome ACS Diagnosis: No Congestive Heart Failure Congestive Heart Failure Diagnosis No Cerebrovascular Accident CVA/TIA Diagnosis: No VTE (View Protocol) VTE Risk Factors Age>40 No Mechanical VTE Prophylaxis d/t LowRisk-No Interven Req'd No VTE Pharm Prophylaxis d/t NA PharmProphylax ordered Sepsis (View protocol) Sepsis Present: No If YES complete Sepsis Event Note If YES complete Sepsis Event Note Indigo Neves 10/05/17 1701: Core Measures/Misc (11/29) Sepsis (View protocol) If YES complete Sepsis Event Note If YES complete Sepsis Event Note Resident Review Statement Resident Statement: examined this patient, discussed with internal control specialist, agreed with internal control specialist Other Findings: Patient is 42-year-old female with past medical history of peptic ulcer disease diagnosed many years ago, and cyclic vomiting syndrome, came in with a chief complaint of a intractable vomiting and abdominal pain. Patient states that she was doing well on Wednesday night however on Wednesday morning when she woke up, she was vomiting a lot. Patient reports that she approximately vomited around 10 times in one hour and came to ER, she was given IV fluids and antiemetic medications and discharged on metoclopramide and Zofran by mouth. She was advised to follow with a strong nitric operator in 2-3 days. Patient states that when she went home, she continued to vomit and was not able to keep anything down. She came back to ER around 2 AM that night. In ER she did not vomit, she had a CAT scan done, and was discharged home with oral meds. Patient came back to ER on 10/04/17 at 4 PM with similar complaint. She was kept in ER overnight as an ER observation for her symptoms, her ultrasound of abdomen obtained today was concerning for cholecystitis so she was evaluated by surgical team. Per surgical team, it appears that her symptoms were unlikely to be due to acute cholecystitis. Upon further evaluation, patient reported that since Wednesday, she has been having 5/10 constant abdominal pain, hot and burning in nature, non-radiating, worsened by vomiting and eating. Patient denies any blood in the vomit. Of note patient has been on marijuana prescription for her cyclic vomiting syndrome since April 2017, and last time she did marijuana was on 10/01. On review of system, patient is reporting of headache 3/10, and denies any chest pain/palpitations/burning micturition/hesitancy/weakness or pain in lower extremity. Patient reports that she does get short of breath after her episodes of vomiting. Labs and vitals as above CT abdomen pelvis 1. Limited evaluation without oral or IV contrast. Lack of intra-abdominal fat planes also limits evaluation. 2. There is periportal edema present within the liver along with trace abdominal ascites and trace pericholecystic fluid. These findings are nonspecific. Clinical correlation requested. 3. The gallbladder does not appear distended or inflamed. Right upper quadrant ultrasound may be of use for further evaluation. 4. Hyperdense material within the bladder and minimally within the upper urinary collecting systems suggestive of prior IV contrast study. Ultrasound abdomen 1. Above findings are suspicious for acute cholecystitis. Close clinical correlation is requested. 2. No evidence of biliary obstruction, choledocholithiasis or cholelithiasis. 3. Otherwise unremarkable right upper quadrant ultrasound. HIDA scan Normal biliary scan. Visualization of the gallbladder is evidence of a patent cystic duct and strong evidence against the diagnosis of acute cholecystitis. The common bile duct is patent. Liver function appears normal. Assessment and plan Will monitor the patient on general medicine floor for her intractable nausea and vomiting. Her symptoms could be due to her cyclic vomiting syndrome, as her imaging is unrevealing for any acute abdominal cause. Her HIDA scan is negative for any acute cholecystitis. Will manage her vomiting with Tigan and Phenergan, pain management with tramadol and IV Tylenol. We'll keep her on clear liquid diet today, and nothing by mouth after midnight for any possible endoscopic procedure in a.m. Patient does have a history of peptic ulcer disease so we'll give IV Protonix. Patient is hypo-anemic so will replete potassium. GI consult for a.m. DVT prophylaxis Lovenox Patient is full code Andre Goodwin 10/05/17 1723: Core Measures/Misc (11/29) Sepsis (View protocol) If YES complete Sepsis Event Note If YES complete Sepsis Event Note Attending MD Review Statement Attending Statement Attending MD Statement: examined this patient, discuss w/resident/PA/EVALUATOR TRANSFER STUDENTS, agreed w/resident/PA/EVALUATOR TRANSFER STUDENTS, discussed with family, reviewed EMR data (avail), discussed with case mgmt Attending Assessment/Plan: Intractable nausea and vomiting- Pt being placed in observation status . This is her 3rd visit to the ER for nausea and vomiting over the last few days and pt is unable to take po intake. Pt was seen in ED on and then again on [facility] and then came back to ED on evening for the same reason. pt had workup with abdominal CT scan which showed some periportal edema and some trace ascites. Pt had an ultrasound done which was concerning for acute cholecystitis. pt was seen by surgery dr garza and he does not think pt has acute cholecystitis. pt had HIDA scan whose results are not back but surgery reviewed it. We will put her on anti nausea meds and iv fluids and we will repeat her lfts in am. Pt does not have any fever and will be
--- NOTE | 2017-10-05 17:30 | NUCLEAR MEDICINE REPORT ---
BILIARY TRACT IMAGING STUDY CLINICAL INDICATION: Acute cholecystitis. PROCEDURE: Scintillation camera images were obtained over the abdomen for an observation of 50 minutes following the intravenous administration of 5.3 millicuries technetium 99m Choletec. COMPARISON: No previous biliary scan is available for comparison. Abdominal ultrasound dated 10/05/2017, the same date as this biliary scan is available for comparison. The diagnostic CT scan of the abdomen and pelvis, dated 10/04/2017, is available for comparison.. FINDINGS: There is good concentration of activity in the liver by 5 minutes post injection. Biliary activity is well visualized by 10 minutes, and there is good visualization of small bowel activity by 40 minutes. The gallbladder is well visualized by 15 minutes. IMPRESSION: Normal biliary scan. Visualization of the gallbladder is evidence of a patent cystic duct and strong evidence against the diagnosis of acute cholecystitis. The common bile duct is patent. Liver function appears normal.
[2017-10-05 18:08] VITALS: BP 124/64
[2017-10-05 22:07] VITALS: BP 110/70
[2017-10-06 06:20] VITALS: BP 124/76
--- NOTE | 2017-10-06 07:05 | PN- Housestaff ---
Kain Arroyo 10/06/17 0705: Subjective Follow-up For: Cyclic vomiting syndrome Complaints: pain scale (0-10) (5), continued vomiting Subjective: Patient was seen and examined at the bedside. was at the bedside as well. Patient continues to complain of 5 out of 10 abdominal pain and intractable vomiting. States she has been unable to keep anything down since Wednesday. Continues to receive medication for emesis and pain, the patient states she is not receiving any real relief. Review of Systems Constitutional: Reports: no symptoms. EENTM: Reports: no symptoms. Cardiovascular: Reports: no symptoms. Respiratory: Reports: no symptoms. Gastrointestinal: Reports: abdominal pain, nausea, vomiting. Denies: constipation, diarrhea, distention, bowel incontinence, melena, bloody stool, changes in stool. Genitourinary: Reports: no symptoms. Musculoskeletal: Reports: no symptoms. Skin: Reports: no symptoms. Neurological/Psychological: Reports: anxiety. Objective Last 24 Hrs of Vital Signs/I&O Vital Signs Date Time Temp Pulse Resp B/P B/P Pulse O2 O2 Flow FiO2 Mean Ox Delivery Rate 10/06 0620 98.3 64 18 124/76 98 Room Air 10/05 2207 98.3 68 20 110/70 97 Room Air 10/05 1808 98.9 71 18 124/64 100 Room Air 10/05 1603 74 18 142/80 99 Room Air Intake & Output 10/06 1600 10/06 0800 10/06 0000 Intake Total 660 500 Output Total Balance 660 500 Intake, IV 600 500 Intake, Oral 60 0 Physical Exam General Appearance: Alert, Oriented X3, Cooperative, Moderate Distress Skin: No Rashes, No Breakdown Skin Temp/Moisture Exam: Warm/Dry HEENT: Atraumatic, PERRLA, EOMI, membranes slightly dry Neck: Supple, No JVD, No thryomegaly Lymphatic: Cervical nl Cardiovascular: Regular Rate, Normal S1, Normal S2, No Murmurs Lungs: Clear to Auscultation, Normal Air Movement Abdomen: Normal Bowel Sounds, Soft, No Tenderness (none increased over baseline) , No Hepatospenomegaly Neurological: Normal Gait, Normal Speech Extremities: No Clubbing, No Cyanosis, No Edema Current Medications: Current Medications Sig/Christin Start time Last Medication Dose Route Stop Time Status Admin Acetaminophen 1,000 MG Q12P PRN 10/05 1700 AC 10/05 N/A 1 UNIT IV 203 Enoxaparin Sodium 40 MG DAILY 10/06 0900 AC 10/06 SC 1014 Lorazepam 1 MG ONE ONE 10/06 0945 DC 10/06 IV 10/06 0946 0955 Lorazepam 1 MG ONCE ONE 10/06 0315 DC 10/06 IV 10/06 0316 0308 Lorazepam 1 MG ONCE ONE 10/05 1830 DC 10/05 IV 10/05 1831 1831 Metoclopramide HCl 10 MG ONCE ONE 10/06 0945 DC 10/06 PO 10/06 0946 1014 Pantoprazole Sodium 0 .STK-MED ONE 10/05 1654 DC IV Pantoprazole Sodium 40 MG DAILY 10/05 1645 AC 10/06 IV 0834 Potassium Chloride 10 MEQ Q1H 10/05 2000 DC 10/06 IV 10/05 2101 0055 Potassium Chloride 20 MEQ Q10H 10/05 1700 AC 10/05 Sodium Chloride 1,000 ML IV 1944 Potassium Chloride 40 MEQ ONCE ONE 10/05 1700 DC PO 10/05 1701 Promethazine HCl 25 MG Q6P PRN 10/05 1700 AC 10/06 IV 10/12 1659 0256 Promethazine HCl 25 MG ONCE ONE 10/05 1645 DC 10/05 IV 10/05 1646 1630 Promethazine HCl 0 .STK-MED ONE 10/05 1614 DC .ROUTE Sodium Chloride 1,000 ML BOLUS ONE 10/05 1700 CAN IV 10/05 1759 Sodium Chloride 1,000 ML ONCE ONE 10/05 1700 DC 10/05 IV 10/06 0059 1648 Tramadol HCl 50 MG Q6P PRN 10/05 1700 AC PO Trimethobenzamide HCl 200 MG 4 TIMES/DAY PRN 10/05 1700 AC 10/06 IM 1152 Last 24 Hrs of Lab/Edgar Results Last 24 Hrs of Labs/Mics: Laboratory Tests 10/06/17 0800: Anion Gap 16, Estimated GFR > 60, BUN/Creatinine Ratio 24.0, Total Bilirubin 1.0 , Direct Bilirubin 0.3, AST 56 H, ALT 66 H, Alkaline Phosphatase 43, Total Protein 6.4, Albumin 3.8, CBC w Diff NO MAN DIFF REQ, RBC 4.00 L, MCV 88.8, MCH 29.8, MCHC 33.5, RDW 13.4, MPV 8.7, Gran % 80.8 H, Lymphocytes % 8.3 L, Monocytes % 10.7 H, Eosinophils % 0, Basophils % 0.2, Absolute Granulocytes 9.5 H, Absolute Lymphocytes 1.0 L, Absolute Monocytes 1.3 H, Absolute Eosinophils 0, Absolute Basophils 0 10/05/17 1417: Anion Gap 12, Estimated GFR > 60, BUN/Creatinine Ratio 16.0, Glucose 90, Calcium 8.8, Total Bilirubin 0.7, AST 43 H, ALT 59 H, Alkaline Phosphatase 38, Total Protein 6.4, Albumin 4.0, Globulin 2.4, Albumin/Globulin Ratio 1.7, Lipase 79, CBC w Diff NO MAN DIFF REQ, RBC 3.96 L, MCV 88.7, MCH 29.4, MCHC 33.2, RDW 13.7 , MPV 7.7, Gran % 86.5 H, Lymphocytes % 5.1 L, Monocytes % 8.4, Eosinophils % 0, Basophils % 0, Absolute Granulocytes 13.3 H, Absolute Lymphocytes 0.8 L, Absolute Monocytes 1.3 H, Absolute Eosinophils 0, Absolute Basophils 0, Hepatitis A IgM Ab NONREACTIVE, Hep Bs Antigen NONREACTIVE, Hep B Core IgM Ab Conf NONREACTIVE, Hepatitis C Antibody NONREACTIVE Orders Radiology Findings: RUQ ultrasound considered suspicious for cholecystitis - ruled out by HIDA Nonspecific findings CT ABD and pelvis Miscellaneous Findings: HIDA scan negative for biliary disease Assessment/Plan Assessment: 42 year old female with PMH of PUD and cyclic vomiting syndrome on observation for intractable vomiting. Planning for discharge today if patient's symptoms improve, and she will followup with PCP. Problem list/plan: Intractable vomiting and abdominal pain -Observe on general medicine floor -HIDA is negative for acute cholecystitis -Pain management with Tigan and Phenergan avoiding metoclopramide and Zofran -gave one dose of metoclopramide along with ativan for nausea control -Clear liquid diet, NPO after midnight for any possible endoscopy -IV protonix for known PUD. -Replete potassium (likely from vomiting) - patient received via IV -GI consult for AM placed DVT prophylaxis: Subcu heparing Clear liquid diet Patient is full code Problem List: 1. Cyclical vomiting syndrome 2. Nausea and vomiting 3. Abdominal pain Pain Ratin Pain Location: abdomen Pain Goal: Pain 4 or less Pain Plan: Tramadol prn Tomorrow's Labs & Rationales: none planned, discharge Marti Harris 10/06/17 1131: Attending MD Review Statement Attending Statement Attending MD Statement: examined this patient, discuss w/resident/PA/DATA SUPPORT ANALYST, agreed w/resident/PA/DATA SUPPORT ANALYST, discussed with family, reviewed EMR data (avail), discussed with nursing, discussed with case mgmt, reviewed images, amended to note Attending Assessment/Plan: Patient here in observation status for nasuea/vomiting and cyclical vomiting syndrome. Trial of reglan alongwith ativan has helped her in past. Her urine drug testing is positive for marijuana. GI notified and Surgery was conuslted on arrival by admitting team with no intervention planned. Anticipate dsicharge as her clinical condition improves and f/u PCP as outpatient.
[2017-10-06 10:26] LABS: ABSOLUTE BASOPHIL COUNT 0 /CUMM (0.0-0.2); ABSOLUTE EOSINOPHIL COUNT 0 /CUMM (0.0-0.7); ABSOLUTE GRANULOCYTE CT 9.5 /CUMM (1.4-6.5); ABSOLUTE MONOCYTE COUNT 1.3 /CUMM (0.10-0.60); BASOPHIL % 0.2 % (0.0-2.0); EOSINOPHIL % 0 % (0-5); GRANULOCYTE % 80.8 % (42.2-75.2); HEMATOCRIT 35.5 % (37-47); MEAN CORPUSCULAR HGB 29.8 PG (27.0-31.0); MEAN CORPUSCULAR HGB CONC 33.5 G/DL (33.0-37.0); MEAN CORPUSCULAR VOLUME 88.8 FL (81.0-99.0); MEAN PLATELET VOLUME 8.7 FL (7.4-10.4); PLATELET COUNT 300 /CUMM (130-400); RBC DISTRIBUTION WIDTH 13.4 % (11.5-14.5); WHITE BLOOD CELL COUNT 11.7 /CUMM (4.8-10.8)
--- NOTE | 2017-10-06 13:43 | Patient Discharge Instructions ---
Discharge Instructions General Discharge Information Special Instructions: - Please follow up with your primary care physician within 1-2 weeks of discharge. Inform your primary care physician of this admission to [facility]. - Continue your current medications per discharge instructions. - Please watch for these problems: Fever, Chills, Nausea, Vomiting, Shortness of Breath, Productive Cough, Chest Pain/Discomfort, Abdominal Pain, Active Bleeding or Bloody urine/stool. Diet Continue normal diet: Yes (as tolerated) Activity Full Activity/No Limits: Yes Acute Coronary Syndrome Inclusion Criteria At DC or during hospital stay patient has or had the following: ACS DIAGNOSIS No Discharge Core Measures Meds if any: Prescribed or Continued at Discharge Meds if any: NOT Prescribed or Continued at Discharge Congestive Heart Failure Inclusion Criteria At DC or during hospital stay patient has or had the following: CHF DIAGNOSIS No Discharge Core Measures Meds if any: Prescribed or Continued at Discharge Meds if any: NOT Prescribed or Continued at Discharge Cerebrovascular accident Inclusion Criteria At DC or during hospital stay patient has or had the following: CVA/TIA Diagnosis No Discharge Core Measures Meds if any: Prescribed or Continued at Discharge Meds if any: NOT Prescribed or Continued at Discharge Venous thromboembolism Inclusion Criteria VTE Diagnosis No VTE Type NONE VTE Confirmed by (Test) NONE Discharge Core Measures - Per Current guidelines, there needs to be overlap - treatment for the first 5 days of Warfarin therapy. - If discharged on Warfarin prior to 5 days of - overlap therapy, the patient will need to be - assessed for post discharge needs including - *Post discharge parental anticoagulation - *Warfarin and/or parental anticoagulation education - *Follow up date to check INR post discharge At least 5 days overlap therapy as Inpatient No Meds if any: Prescribed or Continued at Discharge Note: Overlap Therapy is Warfarin and Anticoagulant Meds if any: NOT Prescribed or Continued at Discharge
--- NOTE | 2017-10-06 13:43 | PN- Student ---
Subjective Subjective: Hospital day 1: 42-year-old female with PMH of cyclic vomiting syndrome, PUD presented to ER with intractable vomiting for 2 days. Patient was seen and examined at bed side. She stated that she had about 5-6 episodes of vomiting overnight, abdominal pain rated 5/10 but in the morning it was just some ache. Patient stated she was tired, weakness and stressful about her life as she was concerning about her divorce. Objective Objective: Physical Exam: - Vital signs: T: 98.3F // P: 64 // RR: 18 // BP: 124/76 // SpO2: 98. - Patient was oriented to Time, Person and Place, coorporative, no acute distress. - HEENT: PERRLA, EOMI - Neck: no lymphadenopathy. - Heart: normal S1, S2, no additional murmur nor gallop. - Lungs: CTA bilaterally. - Abdomen: soft, diffuse mild tenderness on palpation. - Extremities: no edema. Labs: - Leukocytosis trending down to 11.7 this morning, her potassium trending up 3.3 this morning. - Positive urine cannabis. Imaging: - HIDA scan: Visualization of the gallbladder is evidence of a patent cystic duct and strong evidence against the diagnosis of acute cholecystitis. The common bile duct is patent. Liver function appears normal. Assessment/Plan Assessment: Summary: 42-year-old female with PMH of cyclic vomiting syndrome, PUD presented to ER with intractable vomiting for 2 days. Labs showed hypokalemia, lekocytosis. HIDA scan ruled out acute cholecystitis. PE revealed diffuse abdominal pain. Problem list: - Cyclic vomiting sydnrome. - PUD. Plan: 1. Cylic vomiting syndrome: - NPO for further GI consult. - Continue supportive treatment of IVF - Give 1 dose Reglan 10 mg + Ativant 1mg for anxiety. 2. PUD: - Continue home meds. - DVT prophylaxis with Alps. - Patient is full code.
[2017-10-06 14:10] VITALS: BP 100/60
[2017-10-06 22:12] VITALS: BP 102/58
[2017-10-07 06:09] VITALS: BP 104/60
--- NOTE | 2017-10-07 07:02 | PN-Observation ---
Kain Arroyo 10/07/17 0701: Observation Note Observation Note _ I have personally examined CHILO VANEGAS. her disposition is uncertain at this time. Before a determination can be made, she requires continued observation for the following reasons [continued intractable vomiting]. Assessment/Plan Medical Assessment: 42 year old female with PMH of PUD and cyclic vomiting syndrome on observation for intractable vomiting. Planning for discharge today if patient's symptoms improve, and she will followup with PCP. Problem list/plan: Intractable vomiting and abdominal pain -Observe on general medicine floor -HIDA is negative for acute cholecystitis -Pain management with Tigan and Phenergan avoiding metoclopramide and Zofran -gave one dose of metoclopramide along with ativan for nausea control -Clear liquid diet, NPO after midnight for any possible endoscopy -IV protonix for known PUD. -Replete potassium (likely from vomiting) - patient received via IV -GI consult re-placed from yesterday DVT prophylaxis: Subcu heparine Clear liquid diet Patient is full code Problem List: 1. Cyclical vomiting syndrome 2. Nausea and vomiting 3. Abdominal pain Plan: As above Discharge Plan Discharge Disposition: home Stable for Discharge? Yes Anticipated Discharge (Day): today Subjective Follow-up For: Cyclic vomiting syndrome Complaints: continued abdominal pain and vomiting Subjective: Patient seen and examined at the bedside. Patient continues to complain of nausea, vomiting, abdominal pain. Patient understands she will likely go home today, but waiting for GI recommendations. Otherwise no complaints. Review of Systems Constitutional: Reports: no symptoms. Gastrointestinal: Reports: abdominal pain, nausea, vomiting. Objective Last 24 Hrs of Vital Signs/I&O Vital Signs Date Time Temp Pulse Resp B/P B/P Pulse O2 O2 Flow FiO2 Mean Ox Delivery Rate 10/07 0609 97.9 72 20 104/60 97 10/06 2212 98.7 64 20 102/58 98 10/06 1410 98.3 62 20 100/60 98 Room Air Intake & Output 10/07 1600 10/07 0800 10/07 0000 Intake Total 860 800 Output Total Balance 860 800 Intake, IV 800 800 Intake, Oral 60 0 Patient 99 lb 15.99 oz Weight Physical Exam General Appearance: Alert, Oriented X3, Cooperative, Mild Distress Skin: No Rashes, No Breakdown HEENT: Atraumatic, PERRLA, EOMI, Mucous Membr. moist/pink Neck: Supple, No JVD, No thryomegaly Lymphatic: Cervical nl Cardiovascular: Regular Rate, Normal S1, Normal S2, No Murmurs Lungs: Clear to Auscultation, Normal Air Movement Abdomen: Normal Bowel Sounds, Soft, No Hepatospenomegaly Neurological: Normal Gait, Normal Speech, Strength at 5/5 X4 Ext, Normal Tone, Sensation Intact Extremities: No Clubbing, No Cyanosis, No Edema Vascular: Normal Pulses, Pulses Symmetrical Current Medications: Current Medications Sig/Christin Start time Last Medication Dose Route Stop Time Status Admin Acetaminophen 1,000 MG Q12P PRN 10/05 1700 10/05 N/A 1 UNIT IV 203 Enoxaparin Sodium 40 MG DAILY 10/06 0900 10/07 SC 0931 Lorazepam 1 MG ONE ONE 10/06 1600 DC 10/06 IV 10/06 1601 1602 Ondansetron HCl 4 MG ONCE ONE 10/06 1600 DC 10/06 IV 10/06 1601 1603 Pantoprazole Sodium 40 MG DAILY 10/05 1645 10/07 IV 0931 Potassium Chloride 20 MEQ Q10H 10/05 1700 10/07 Sodium Chloride 1,000 ML IV 0205 Promethazine HCl 25 MG .STK-MED ONE 10/07 0126 MN IM 10/07 012 Promethazine HCl 25 MG .STK-MED ONE 10/06 2014 [facility] 10/06 2016 Promethazine HCl 25 MG .STK-MED ONE 10/06 1416 MN IM 10/06 1417 Promethazine HCl 25 MG Q6P PRN 10/05 1700 10/07 IV 10/12 1659 0936 Tramadol HCl 50 MG Q6P PRN 10/05 1700 AC PO Trimethobenzamide HCl 200 MG .STK-MED ONE 10/07 0012 MN IM 10/07 0013 Trimethobenzamide HCl 200 MG .STK-MED ONE 10/06 1747 MN IM 10/06 1748 Trimethobenzamide HCl 200 MG 4 TIMES/DAY PRN 10/05 1700 10/07 IM 0636 Last 24 Hrs of Labs/Mics: Laboratory Tests 10/07/17 0750: Anion Gap 14, Estimated GFR > 60, BUN/Creatinine Ratio 24.0, CBC w Diff NO MAN DIFF REQ, RBC 4.04 L, MCV 87.2, MCH 30.1, MCHC 34.5, RDW 12.6, MPV 9.0, Gran % 80.1 H, Lymphocytes % 10.3 L, Monocytes % 9.0, Eosinophils % 0.4, Basophils % 0.2, Absolute Granulocytes 9.4 H, Absolute Lymphocytes 1.2, Absolute Monocytes 1.1 H, Absolute Eosinophils 0, Absolute Basophils 0 Marti Harris 10/07/17 1147: Attending Addendum Attending Brief Note Patient here in observation status for nasuea/vomiting and cyclical vomiting syndrome. Her urine drug testing is positive for marijuana. PO phenergan and avoid stress triggers. Relaxation exercises. GI notified and Surgery was conuslted on arrival by admitting team with no intervention planned. Anticipate dsicharge as her clinical condition improves today and f/u PCP Dr Pereira as outpatient. SW consulted on her social situation.
[2017-10-07 08:29] LABS: ABSOLUTE BASOPHIL COUNT 0 /CUMM (0.0-0.2); ABSOLUTE EOSINOPHIL COUNT 0 /CUMM (0.0-0.7); ABSOLUTE GRANULOCYTE CT 9.4 /CUMM (1.4-6.5); ABSOLUTE LYMPH COUNT 1.2 /CUMM (1.2-3.4); ABSOLUTE MONOCYTE COUNT 1.1 /CUMM (0.10-0.60); BASOPHIL % 0.2 % (0.0-2.0); EOSINOPHIL % 0.4 % (0-5); GRANULOCYTE % 80.1 % (42.2-75.2); HEMATOCRIT 35.3 % (37-47); MEAN CORPUSCULAR HGB 30.1 PG (27.0-31.0); MEAN CORPUSCULAR HGB CONC 34.5 G/DL (33.0-37.0); MEAN CORPUSCULAR VOLUME 87.2 FL (81.0-99.0); PLATELET COUNT 289 /CUMM (130-400); RBC DISTRIBUTION WIDTH 12.6 % (11.5-14.5); RED BLOOD CELL CT 4.04 /CUMM (4.20-5.40); WHITE BLOOD CELL COUNT 11.8 /CUMM (4.8-10.8)
[2017-10-07 13:50] VITALS: BP 108/80
--- NOTE | 2017-10-07 18:48 | Cons- Gastroenterology ---
General Information and HPI Consulting Request Date of Consult: 10/07/17 Requested By: Steven GRANT,Marti Reason for Consult: Vomiting Allergies/Medications Allergies: Coded Allergies: ondansetron (From ZOFRAN ( HYDROCHLORIDE)) (Intermediate, ANXIETY 10/03/17) metoclopramide (From REGLAN) ("ITCHY" PER PT 10/04/17) Home Med List: Levonorgestrel (Mirena) 20 MCG/24 HOUR (5 YEARS) IUD CONTROL (Reported) Metoclopramide HCl (Metoclopramide HCl Odt) 10 MG TAB.RAPDIS 1 TAB PO TID VOMITING Promethazine HCl (Phenergan) 25 MG SUPP.RECT 1 SUPP ND TID PRN NAUSEA Promethazine HCl 25 MG TABLET 1 TAB PO Q6P PRN NAUSEA Scopolamine (Transderm-Scop) 1 MG/3 DAY PATCH.TD.3 1 PATCH TOP Q3DAYS PRN NAUSEA Current Medications: Current Medications Sig/Christin Start time Last Medication Dose Route Stop Time Status Admin Acetaminophen 1,000 MG Q12P PRN 10/05 1700 AC 10/05 N/A 1 UNIT IV 2033 Amitriptyline HCl 10 MG ONCE ONE 10/07 1600 DC 10/07 PO 10/07 1601 1649 Enoxaparin Sodium 40 MG DAILY 10/06 0900 AC 10/07 SC 0931 Pantoprazole Sodium 40 MG DAILY 10/05 1645 AC 10/07 IV 0931 Patient Medication 1 ED ONE ONE 10/07 1645 MT 10/07 Teaching ED 10/07 1646 1651 Potassium Chloride 20 MEQ Q10H 10/05 1700 MT 10/07 Sodium Chloride 1,000 ML IV 0205 Promethazine HCl 25 MG .STK-MED ONE 10/07 0126 DC IM 10/07 0127 Promethazine HCl 25 MG .STK-MED ONE 10/06 2014 MT IM 10/07 2015 Promethazine HCl 25 MG Q6P PRN 10/05 1700 AC 10/07 IV 10/12 1659 0936 Tramadol HCl 50 MG Q6P PRN 10/05 1700 AC PO Trimethobenzamide HCl 200 MG .STK-MED ONE 10/07 0631 MT IM 10/07 0632 Trimethobenzamide HCl 200 MG .STK-MED ONE 10/07 0012 MT IM 10/07 0013 Trimethobenzamide HCl 200 MG 4 TIMES/DAY PRN 10/05 1700 AC 10/07 IM 0636 Past History Travel History Traveled to [place] past 21 day No Medical History Neurological: NONE EENT: NONE Cardiovascular: NONE Respiratory: NONE Gastrointestinal: GASTRIC ULCER cyclic vomiting syndrome Hepatic: NONE Renal: NONE Musculoskeletal: NONE Psychiatric: NONE Endocrine: NONE Blood Disorders: NONE Cancer(s): 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 Ambulation: independent IADLs Independent: shopping, housework, finances, food prep, telephone, transportation , medication admin. Employment History Employment: Unemployed Exam & Diagnostic Data Vital Signs and I&O Vital Signs Date Time Temp Pulse Resp B/P B/P Pulse O2 O2 Flow FiO2 Mean Ox Delivery Rate 10/07 1350 98.2 63 20 108/80 97 Room Air 10/07 0609 97.9 72 20 104/60 97 10/06 2212 98.7 64 20 102/58 98 Intake & Output 10/07 1600 10/07 0400 10/06 1600 10/06 0400 10/05 1600 10/05 0400 Intake Total 7964 503 1948 500 100 Output Total 300 Balance 4159 015 5569 500 100 Intake, IV 126 391 4692 500 100 Intake, Oral 1000 0 180 0 Number 0 Bowel Movements Output, Urine 300 Patient 99 lb 15.99 oz Weight Physical Exam: Unrevealing Results Pertinent Lab Results: Laboratory Tests 10/07 10/06 0750 0800 Chemistry Sodium (137 - 145 mmol/L) 140 140 Potassium (3.5 - 5.1 mmol/L) 3.8 3.3 L Chloride (98 - 107 mmol/L) 102 102 Carbon Dioxide (22 - 30 mmol/L) 23 22 Anion Gap (5 - 16) 14 16 BUN (7 - 17 mg/dL) 12 12 Creatinine (0.5 - 1.0 mg/dL) 0.5 0.5 Estimated GFR (>60 ml/min) > 60 > 60 BUN/Creatinine Ratio (7 - 25 %) 24.0 24.0 Total Bilirubin (0.2 - 1.3 mg/dL) 1.0 Direct Bilirubin (< 0.4 mg/dL) 0.3 AST (14 - 36 U/L) 56 H ALT (9 - 52 U/L) 66 H Alkaline Phosphatase (<127 U/L) 43 Total Protein (6.3 - 8.2 g/dL) 6.4 Albumin (3.5 - 5.0 g/dL) 3.8 Hematology CBC w Diff NO MAN DIFF REQ NO MAN DIFF REQ WBC (4.8 - 10.8 /CUMM) 11.8 H 11.7 H RBC (4.20 - 5.40 /CUMM) 4.04 L 4.00 L Hgb (12.0 - 16.0 G/DL) 12.2 11.9 L Hct (37 - 47 %) 35.3 L 35.5 L MCV (81.0 - 99.0 FL) 87.2 88.8 MCH (27.0 - 31.0 PG) 30.1 29.8 MCHC (33.0 - 37.0 G/DL) 34.5 33.5 RDW (11.5 - 14.5 %) 12.6 13.4 Plt Count (130 - 400 /CUMM) 289 300 MPV (7.4 - 10.4 FL) 9.0 8.7 Gran % (42.2 - 75.2 %) 80.1 H 80.8 H Lymphocytes % (20.5 - 51.1 %) 10.3 L 8.3 L Monocytes % (1.7 - 9.3 %) 9.0 10.7 H Eosinophils % (0 - 5 %) 0.4 0 Basophils % (0.0 - 2.0 %) 0.2 0.2 Absolute Granulocytes (1.4 - 6.5 /CUMM) 9.4 H 9.5 H Absolute Lymphocytes (1.2 - 3.4 /CUMM) 1.2 1.0 L Absolute Monocytes (0.10 - 0.60 /CUMM) 1.1 H 1.3 H Absolute Eosinophils (0.0 - 0.7 /CUMM) 0 0 Absolute Basophils (0.0 - 0.2 /CUMM) 0 0 10/05 10/04 1417 2147 Chemistry Sodium (137 - 145 mmol/L) 141 Potassium (3.5 - 5.1 mmol/L) 3.1 L Chloride (98 - 107 mmol/L) 102 Carbon Dioxide (22 - 30 mmol/L) 27 Anion Gap (5 - 16) 12 BUN (7 - 17 mg/dL) 8 Creatinine (0.5 - 1.0 mg/dL) 0.5 Estimated GFR (>60 ml/min) > 60 BUN/Creatinine Ratio (7 - 25 %) 16.0 Glucose (65 - 99 mg/dL) 90 Calcium (8.4 - 10.2 mg/dL) 8.8 Total Bilirubin (0.2 - 1.3 mg/dL) 0.7 AST (14 - 36 U/L) 43 H ALT (9 - 52 U/L) 59 H Alkaline Phosphatase (<127 U/L) 38 Total Protein (6.3 - 8.2 g/dL) 6.4 Albumin (3.5 - 5.0 g/dL) 4.0 Globulin (1.9 - 4.2 gm/dL) 2.4 Albumin/Globulin Ratio (1.1 - 2.2 %) 1.7 Lipase (23 - 300 U/L) 79 Hematology CBC w Diff NO MAN DIFF REQ WBC (4.8 - 10.8 /CUMM) 15.3 H RBC (4.20 - 5.40 /CUMM) 3.96 L Hgb (12.0 - 16.0 G/DL) 11.7 L Hct (37 - 47 %) 35.1 L MCV (81.0 - 99.0 FL) 88.7 MCH (27.0 - 31.0 PG) 29.4 MCHC (33.0 - 37.0 G/DL) 33.2 RDW (11.5 - 14.5 %) 13.7 Plt Count (130 - 400 /CUMM) 310 MPV (7.4 - 10.4 FL) 7.7 Gran % (42.2 - 75.2 %) 86.5 H Lymphocytes % (20.5 - 51.1 %) 5.1 L Monocytes % (1.7 - 9.3 %) 8.4 Eosinophils % (0 - 5 %) 0 Basophils % (0.0 - 2.0 %) 0 Absolute Granulocytes (1.4 - 6.5 /CUMM) 13.3 H Absolute Lymphocytes (1.2 - 3.4 /CUMM) 0.8 L Absolute Monocytes (0.10 - 0.60 /CUMM) 1.3 H Absolute Eosinophils (0.0 - 0.7 /CUMM) 0 Absolute Basophils (0.0 - 0.2 /CUMM) 0 Serology Hepatitis A IgM Ab (NONREACTIVE) NONREACTIVE Hep Bs Antigen (NONREACTIVE) NONREACTIVE Hep B Core IgM Ab Conf (NONREACTIVE) NONREACTIVE Hepatitis C Antibody (NONREACTIVE) NONREACTIVE Toxicology Urine Opiates Screen (>2000 NG/ML) < 100 Methadone Screen (>300 NG/ML) 77 Barbiturate Screen (>200 NG/ML) < 60 Ur Phencyclidine Scrn (>25 NG/ML) < 6.00 Amphetamines Screen (>1000 NG/ML) < 100 U Benzodiazepines Scrn (>200 NG/ML) < 85 Urine Cocaine Screen (>300 NG/ML) < 50 Urine Cannabis Screen (>50 NG/ML) > 80.00 H Urines Urinalysis MOD H Urine Color (YEL,AMB,STR) YEL Urine Clarity (CLEAR) CLEAR Urine pH (5.0 - 8.0) 7.0 Ur Specific [place] (1.001 - 1.035) 1.025 Urine Protein (NEG,<30 MG/DL) TRACE H Urine Ketones (NEG) 40 H Urine Nitrite (NEG) NEG Urine Bilirubin (NEG) NEG Urine Urobilinogen (0.1 - 1.0 EU/dl) 0.2 Ur Leukocyte Esterase (NEG) NEG Ur Microscopic SEDIMENT EXAMINED Urine WBC (0 - 2 /HPF) 1-3 H Ur Epithelial Cells (NONE,FEW) FEW Urine Bacteria (NEG/NONE) FEW H Urine Mucus (FEW,NONE) FEW Urine Hemoglobin (NEG) NEG Urine Glucose (N MG/DL) NEG 10/05 1907 Chemistry Lactic Acid Cancelled Assessment/Plan Assessment/Recommendations: The patient presents with an acute episode of nausea, vomiting, and subsequent burning epigastric pain. As of today, there has been improvement, and she is tolerating a liquid diet. The severe episodes are recurrent, and perhaps several times per year. In between, there is a tendency to nausea and indigestion, which is often stress-related. The patient reports a history of peptic ulcer with bleeding 17 years ago. She has recently been used marijuana, but no antisecretory or other GI agents. There is unclear significance to the imaging findings of periportal edema and scant ascites, as well as mild transaminitis; there is no clear biliary process. Recommendations * Advance to bland, solid diet, and if tolerated may discharge * For the next week, ondansetron ODT 4 mg prior to meals * PPI daily * Limited medical marijuana use to occasional/as needed. Regular use may cause hyperemesis. * Begin amitriptyline 25 mg by mouth daily at bedtime * Outpatient follow-up with me within the month (EGD, LFTs, etc.) Consult Acknowledgment - Thank you for your consult request.
== END 2017-10-07 18:44 ==
LOC: ERH 14:56 → ERHI 22:18 → EDBEDREQ 10-05 16:35 → ENRESERV 10-05 16:51 → ERHI 10-05 17:21 → ENTRNSPT 10-05 17:35 → ERHI 10-05 17:37 → 2NA 10-05 17:47 → EDTRNSPTSTS 10-05 17:49 → EDTRNSPT 10-05 17:49 → CMPTRNSPT 10-05 18:03 → 2NA 10-06 09:03
PROVIDERS: Emergency Medicine; General Practice; Physician Assistant
DX: K31.89 Other diseases of stomach and duodenum (principal); R11.2 Nausea with vomiting, unspecified; R10.9 Unspecified abdominal pain; F12.90 Cannabis use, unspecified, uncomplicated; K27.9 Peptic ulcer, site unspecified, unspecified as acute or chronic, without hemorrhage or perforation; Z87.891 Personal history of nicotine dependence
CPT/HCPCS: 36415; 36592; 74176; 78226; 80307; 81001; 82436; 96372; 96374; 96375; A9537; G0378; J0131; J0696; J1650; J1885; J2060; J2405; J2550; J3250; J7120